=== PATIENT | female | born 1935 | race Caucasian/White ===

== ENCOUNTER 2018-09-08 08:47 | Inpatient (IN) | payer OTHER ==
[~2018-09-08] VITALS: Ht 162.6 cm; Wt 65.0 kg
[2018-09-08 08:57] VITALS: Ht 162.6 cm; Wt 65.0 kg
[2018-09-08 09:25] LABS: BASOPHIL % 0.3 % (0-2); PLATELET COUNT 224 x10^3mcL (130-400); RED CELL DISTRIBUTION WIDTH 13.8 % (11.5-14.5)
[2018-09-08 09:38] LABS: CALCIUM 8.6 mg/dL (8.5-10.1); CARBON DIOXIDE 25.4 mmol/L (21-32); CHLORIDE SERUM 104 mmol/L (98-107); CREATININE SERUM 0.8 mg/dL (0.6-1.0); GLUCOSE SERUM 108 mg/dL (74-106); POTASSIUM SERUM 4.1 mmol/L (3.5-5.1); SODIUM SERUM 139 mmol/L (136-145)
[2018-09-08 09:41] LABS: ALKALINE PHOSPHATASE 91 U/L (46-116); ALT/SGPT 25 U/L (14-59); AST/SGOT 22 U/L (15-37); BILIRUBIN TOTAL 0.2 mg/dL (0.20-1.00); CHOLESTEROL 178 mg/dL (<200); LIPASE 134 IU/L (73-393); TOTAL PROTEIN, SERUM 6.7 g/dL (6.4-8.2); TRIGLYCERIDES 104 mg/dL (<150)
[2018-09-08 09:43] LABS: ALBUMIN 2.7 g/dL (3.4-5.0); CHOLESTEROL/HDL RATIO 5.2; HDL CHOLESTEROL 34 mg/dL (40-60)
[2018-09-08 09:57] LABS: FREE T4 0.92 ng/dL (0.76-1.46); FREE THYROXINE INDEX 2.4 ug/dL (1.4-4.5); T4(THYROXINE) 7.4 ug/dL (4.7-13.3)
[2018-09-08 10:02] LABS: T3 TOTAL 1.05 ng/mL
[2018-09-08 10:25] LABS: UA SPECIFIC GRAVITY 1.015 (1.005-1.035); microscopic required? YES; urine erythrocyte TRACE (NEGATIVE)
[2018-09-08] MEDS ORDERED: SENNA PLUS1 TAB PO (12:24)
[2018-09-08] MEDS ORDERED: TRAZODONE100 MG PO (12:24)
[2018-09-08] MEDS ORDERED: SEROQUEL50 M1 PO (12:24)
[2018-09-08] MEDS ORDERED: PAIN & FEVER325 MG PO (12:25)
[2018-09-08] MEDS ORDERED: GERI-LANTA355 ML PO (12:26)
[2018-09-08] MEDS ORDERED: GOOD NEIGH1200 MG/15 PO (12:27)
[2018-09-08 13:18] LABS: UA SPECIFIC GRAVITY 1.015 (1.005-1.035); microscopic required? YES; urine erythrocyte NEGATIVE (NEGATIVE)
[2018-09-08 13:27] LABS: AMPHETAMINE QUAL UR NONE DETECTED (See below)
[2018-09-08 13:29] LABS: MAGNESIUM 2.2 mg/dL (1.8-2.4); PHOSPHOROUS 3.4 mg/dL (2.5-4.9)
[2018-09-08 13:45] VITALS: BP 118/70
[2018-09-08 15:53] VITALS: BP 116/79
[2018-09-08 20:53] VITALS: BP 178/70
[2018-09-08 23:00] VITALS: BP 154/67
[2018-09-09 05:59] VITALS: BP 132/77
[2018-09-09 06:41] LABS: BASOPHIL % 0.4 % (0-2); PLATELET COUNT 214 x10^3mcL (130-400)
[2018-09-09 07:06] LABS: CALCIUM 8.2 mg/dL (8.5-10.1); CHLORIDE SERUM 107 mmol/L (98-107); CREATININE SERUM 0.6 mg/dL (0.6-1.0); GLUCOSE SERUM 86 mg/dL (74-106); PHOSPHOROUS 3.2 mg/dL (2.5-4.9); POTASSIUM SERUM 3.8 mmol/L (3.5-5.1); SODIUM SERUM 141 mmol/L (136-145)
[2018-09-09 09:49] VITALS: BP 122/51
[2018-09-09 12:09] VITALS: BP 139/66
[2018-09-09 17:23] VITALS: BP 134/50
[2018-09-09 20:35] VITALS: BP 152/68
[2018-09-10 05:42] VITALS: BP 150/71
[2018-09-10 07:02] LABS: CALCIUM 8.1 mg/dL (8.5-10.1); CARBON DIOXIDE 24.5 mmol/L (21-32); CHLORIDE SERUM 105 mmol/L (98-107); CREATININE SERUM 0.7 mg/dL (0.6-1.0); GLUCOSE SERUM 92 mg/dL (74-106); MAGNESIUM 2.1 mg/dL (1.8-2.4); PHOSPHOROUS 2.9 mg/dL (2.5-4.9); POTASSIUM SERUM 3.5 mmol/L (3.5-5.1); SODIUM SERUM 138 mmol/L (136-145)
[2018-09-10 07:13] LABS: BASOPHIL % 0.4 % (0-2); PLATELET COUNT 232 x10^3mcL (130-400); RED CELL DISTRIBUTION WIDTH 14.3 % (11.5-14.5)
[2018-09-10 08:45] VITALS: BP 157/72
[2018-09-10 12:27] VITALS: BP 147/77
[2018-09-10 17:36] VITALS: BP 158/68
[2018-09-10 21:21] VITALS: BP 145/76
[2018-09-11 05:43] VITALS: BP 125/61
[2018-09-11 07:22] LABS: BASOPHIL % 0.3 % (0-2); PLATELET COUNT 225 x10^3mcL (130-400); RED CELL DISTRIBUTION WIDTH 13.8 % (11.5-14.5)
[2018-09-11 07:34] LABS: CALCIUM 8.5 mg/dL (8.5-10.1); CARBON DIOXIDE 27.4 mmol/L (21-32); CHLORIDE SERUM 107 mmol/L (98-107); CREATININE SERUM 0.7 mg/dL (0.6-1.0); GLUCOSE SERUM 99 mg/dL (74-106); MAGNESIUM 2.2 mg/dL (1.8-2.4); PHOSPHOROUS 3.2 mg/dL (2.5-4.9); POTASSIUM SERUM 3.5 mmol/L (3.5-5.1); SODIUM SERUM 142 mmol/L (136-145)
[2018-09-11 09:46] VITALS: BP 130/70
[2018-09-11 17:16] VITALS: BP 138/55
[2018-09-12 06:08] VITALS: BP 138/95
[2018-09-12 07:58] LABS: CALCIUM 9.1 mg/dL (8.5-10.1); CARBON DIOXIDE 27.2 mmol/L (21-32); CHLORIDE SERUM 103 mmol/L (98-107); CREATININE SERUM 0.8 mg/dL (0.6-1.0); GLUCOSE SERUM 73 mg/dL (74-106); MAGNESIUM 2.3 mg/dL (1.8-2.4); PHOSPHOROUS 3.7 mg/dL (2.5-4.9); POTASSIUM SERUM 3.1 mmol/L (3.5-5.1); SODIUM SERUM 141 mmol/L (136-145)
[2018-09-12 08:46] LABS: BASOPHIL % 0.5 % (0-2); PLATELET COUNT 295 x10^3mcL (130-400)
[2018-09-12 08:55] LABS: RED CELL DISTRIBUTION WIDTH 14.7 % (11.5-14.5)
[2018-09-12 09:50] VITALS: BP 133/53
[2018-09-12 13:51] VITALS: BP 158/84
[2018-09-12 20:59] VITALS: BP 142/78
[2018-09-13 05:25] VITALS: BP 126/56; BP 152/74
[2018-09-13 09:53] VITALS: BP 167/80
[2018-09-13 10:16] VITALS: BP 150/71
[2018-09-13 10:48] VITALS: BP 150/71
== END 2018-09-13 13:55 | DRG 689 ==
LOC: ED 08:47 → DU 12:26 → MU 12:26 → DU 13:27
PROVIDERS: Family Medicine; Internal Medicine; Specialist
DX: N39.0 Urinary tract infection, site not specified (principal); G93.41 Metabolic encephalopathy; E46 Unspecified protein-calorie malnutrition; E78.5 Hyperlipidemia, unspecified; F03.90 Unspecified dementia, unspecified severity, without behavioral disturbance, psychotic disturbance, mood disturbance, and anxiety; E87.6 Hypokalemia; B96.29 Other Escherichia coli [E. coli] as the cause of diseases classified elsewhere; Z66 Do not resuscitate; Z68.23 Body mass index [BMI] 23.0-23.9, adult
CPT/HCPCS: 83880; 84439; 97110-GP; 97116-GP; 97530-GP; J0696; J1630; J2270; J7030; Q0092

== ENCOUNTER 2018-10-08 09:40 | Emergency (ER) | payer OTHER ==
[~2018-10-08] VITALS: Ht 157.5 cm; Wt 65.8 kg
[~2018-10-08 09:40] MED LIST: GERI-LANTA355 ML PO; GOOD NEIGH1200 MG/15 PO; PAIN & FEVER325 MG PO; SENNA PLUS1 TAB PO; SEROQUEL50 M1 PO; TRAZODONE100 MG PO
[2018-10-08 09:43] VITALS: Ht 157.5 cm; Wt 65.8 kg
[2018-10-08 11:38] LABS: BASOPHIL % 0.2 % (0-2); PLATELET COUNT 232 x10^3mcL (130-400); RED CELL DISTRIBUTION WIDTH 13.6 % (11.5-14.5)
[2018-10-08 11:46] LABS: CALCIUM 8.6 mg/dL (8.5-10.1); CARBON DIOXIDE 28.6 mmol/L (21-32); CHLORIDE SERUM 104 mmol/L (98-107); CREATININE SERUM 0.7 mg/dL (0.6-1.0); GLUCOSE SERUM 98 mg/dL (74-106); POTASSIUM SERUM 4.5 mmol/L (3.5-5.1); SODIUM SERUM 139 mmol/L (136-145)
[2018-10-08 11:51] LABS: ALKALINE PHOSPHATASE 102 U/L (46-116); ALT/SGPT 16 U/L (14-59); AST/SGOT 20 U/L (15-37); BILIRUBIN TOTAL 0.53 mg/dL (0.20-1.00); TOTAL PROTEIN, SERUM 7.4 g/dL (6.4-8.2)
[2018-10-08 11:59] LABS: ALBUMIN 2.9 g/dL (3.4-5.0)
[2018-10-08 12:49] VITALS: BP 133/88
== END 2018-10-08 12:57 | disposition home or self-care (01) ==
LOC: ED 09:40
PROVIDERS: Emergency Medicine
DX: S32.020A Wedge compression fracture of second lumbar vertebra, initial encounter for closed fracture (principal); R53.1 Weakness; I10 Essential (primary) hypertension; F03.90 Unspecified dementia, unspecified severity, without behavioral disturbance, psychotic disturbance, mood disturbance, and anxiety; Z88.0 Allergy status to penicillin; X58.XXXA Exposure to other specified factors, initial encounter; Y93.89 Activity, other specified; Y92.89 Other specified places as the place of occurrence of the external cause; Y99.8 Other external cause status
CPT/HCPCS: 36415; J1885

== ENCOUNTER 2018-11-16 20:45 | Inpatient (IN) | payer OTHER ==
[~2018-11-16] VITALS: Ht 162.6 cm; Wt 59.9 kg
[2018-11-16 20:51] VITALS: Ht 162.6 cm; Wt 59.9 kg
[2018-11-16 22:18] LABS: BASOPHIL % 0.1 % (0-2); PLATELET COUNT 285 x10^3mcL (130-400); RED CELL DISTRIBUTION WIDTH 13.5 % (11.5-14.5)
[2018-11-16 22:33] LABS: CALCIUM 8.9 mg/dL (8.5-10.1); CARBON DIOXIDE 29.2 mmol/L (21-32); CHLORIDE SERUM 102 mmol/L (98-107); CREATININE SERUM 0.8 mg/dL (0.6-1.0); GLUCOSE SERUM 112 mg/dL (74-106); POTASSIUM SERUM 3.7 mmol/L (3.5-5.1); SODIUM SERUM 138 mmol/L (136-145)
[2018-11-16 22:44] LABS: ALKALINE PHOSPHATASE 119 U/L (46-116); ALT/SGPT 14 U/L (14-59); AST/SGOT 15 U/L (15-37); BILIRUBIN TOTAL 0.2 mg/dL (0.20-1.00); FREE T4 1.18 ng/dL (0.76-1.46); TOTAL PROTEIN, SERUM 6.8 g/dL (6.4-8.2)
[2018-11-16 22:49] LABS: microscopic required? NO
[2018-11-16 22:51] LABS: ALBUMIN 2.9 g/dL (3.4-5.0)
[2018-11-16 23:13] LABS: UA SPECIFIC GRAVITY <=1.005 (1.005-1.035); urine erythrocyte NEGATIVE (NEGATIVE)
[2018-11-17] MEDS ORDERED: SEROQUEL25 MG PO (01:26)
[2018-11-17] MEDS ORDERED: TRAZODONE50 M1 PO (01:27)
[2018-11-17] MEDS ORDERED: SUNMARK PAIN R325 MG PO (01:28)
[2018-11-17] MEDS ORDERED: ANTI-DIARRHEAL2 MG PO (01:29)
[2018-11-17] MEDS ORDERED: NORCO1 TA2 PO (01:30)
[2018-11-17] MEDS ORDERED: GERI-LANTA355 ML PO (01:30)
[2018-11-17] MEDS ORDERED: MAPAP ARTHRITI650 MG PO (01:31)
[2018-11-17 02:03] LABS: CHOLESTEROL/HDL RATIO 4.2; PHOSPHOROUS 2.5 mg/dL (2.5-4.9)
[2018-11-17 03:01] VITALS: BP 113/45
[2018-11-17 05:36] VITALS: BP 156/61
[2018-11-17 08:12] LABS: CALCIUM 8.9 mg/dL (8.5-10.1); CARBON DIOXIDE 28.3 mmol/L (21-32); CHLORIDE SERUM 103 mmol/L (98-107); CREATININE SERUM 0.8 mg/dL (0.6-1.0); GLUCOSE SERUM 113 mg/dL (74-106); MAGNESIUM 2.2 mg/dL (1.8-2.4); PHOSPHOROUS 2.7 mg/dL (2.5-4.9); POTASSIUM SERUM 3.9 mmol/L (3.5-5.1); SODIUM SERUM 141 mmol/L (136-145)
[2018-11-17 08:33] VITALS: BP 119/45
[2018-11-17 09:28] LABS: BASOPHIL % 0.4 % (0-2); PLATELET COUNT 269 x10^3mcL (130-400); RED CELL DISTRIBUTION WIDTH 13.3 % (11.5-14.5)
[2018-11-17 11:51] VITALS: BP 110/63
[2018-11-17 16:04] VITALS: BP 121/68
[2018-11-17 22:01] VITALS: BP 149/78
[2018-11-18 05:57] VITALS: BP 158/55
[2018-11-18 06:01] LABS: BASOPHIL % 0.6 % (0-2); PLATELET COUNT 266 x10^3mcL (130-400); RED CELL DISTRIBUTION WIDTH 13.5 % (11.5-14.5)
[2018-11-18 06:24] LABS: CARBON DIOXIDE 27.5 mmol/L (21-32); CHLORIDE SERUM 105 mmol/L (98-107); CREATININE SERUM 0.7 mg/dL (0.6-1.0); GLUCOSE SERUM 82 mg/dL (74-106); MAGNESIUM 2.1 mg/dL (1.8-2.4); PHOSPHOROUS 3.7 mg/dL (2.5-4.9); POTASSIUM SERUM 4.1 mmol/L (3.5-5.1); SODIUM SERUM 140 mmol/L (136-145)
[2018-11-18 09:00] VITALS: BP 122/54
[2018-11-18 15:09] VITALS: BP 122/54
== END 2018-11-18 17:33 | disposition home or self-care (01) | DRG 91 ==
LOC: ED 20:45 → MU 11-17 00:41
PROVIDERS: Emergency Medicine; ADMIT Family Medicine
DX: G92 Toxic encephalopathy (principal); E43 Unspecified severe protein-calorie malnutrition; E87.2 Acidosis; E86.0 Dehydration; I10 Essential (primary) hypertension; F03.90 Unspecified dementia, unspecified severity, without behavioral disturbance, psychotic disturbance, mood disturbance, and anxiety; Z68.24 Body mass index [BMI] 24.0-24.9, adult; Z87.440 Personal history of urinary (tract) infections; T43.595A Adverse effect of other antipsychotics and neuroleptics, initial encounter; Y92.89 Other specified places as the place of occurrence of the external cause
CPT/HCPCS: 83880; 84439; J1885; J2060; J7030; Q0092